=== PATIENT | female | born 1950 | race Caucasian/White ===

== ENCOUNTER → 2021-06-03 13:15 | Outpatient (CLI) | payer BC, SELFPAY ==
--- NOTE | ~2021-06-03 | XR_ITS ---
XR chest 2V DATE: 06/03/2021 13:47 INDICATION: Shortness of breath TECHNIQUE: 2 views COMPARISON: None FINDINGS: Normal heart size. No hilar or mediastinal enlargement. There is aortic arch and descending thoracic aortic calcification. No hilar or mediastinal enlargement. Moderate bilateral hyperinflation. No pulmonary infiltrate or consolidation, pleural effusion or pulm onary vascular congestion or pneumothorax. Mild anterior wedge compression fracture deformity of a lower thoracic vertebral body. Diffuse osteop enia. Degenerative spurring of the thoracic spine. IMPRESSION: Moderate hyperinflation; no active cardiopulmonary disease Reviewed, dictated and finalized at location B.
== END ==
PROVIDERS: PCP Physician Assistant; Visit Provider Physician Assistant
DX: R06.02 Shortness of breath (principal); R91.8 Other nonspecific abnormal finding of lung field
CPT/HCPCS: 71046

== ENCOUNTER 2021-09-10 09:35 | Emergency (ER) | payer BC, SELFPAY ==
--- NOTE | ~2021-09-10 | CT_ITS ---
EXAMINATION: CT lumbar spine wo con DATE: 09/10/2021 12:23 INDICATION: Right-sided sciatica. Lumbar pain. TECHNIQUE: Computed tomography (CT) of the lumbar spine was performed without intravenous contrast. A utomated exposure control and iterative reconstruction technique were employed. The dose-length produ ct was 706.31 mGy-cm. COMPARISON: None FINDINGS: There is a small sliding hiatal hernia. There is 8 degrees dextrocurvature of lumbar spine. Vertebral body heights are normal. There is a benign bone island in L3 vertebral body. There is ingrid rely decreased disc height at L5-S1. There is Baastrup disease at L1-L2. The following disc levels ar e specifically discussed: L1-L2: The disc does not extend beyond the endplate margin. There is mild bilateral facet joint osteo arthritis. There is no neural foraminal stenosis. There is no central canal stenosis. L2-L3: The disc is bulging. There is severe bilateral facet joint osteoarthritis. There is mild bilat eral neural foraminal stenosis. There is no central canal stenosis. L3-L4: The disc is bulging. There is severe bilateral facet joint osteoarthritis. There is mild bilat eral neural foraminal stenosis. There is mild central canal stenosis. L4-L5: The disc does not extend beyond the endplate margin. There is severe bilateral facet joint ost eoarthritis. There is no neural foraminal stenosis. There is no central canal stenosis. L5-S1: The disc is bulging. There is severe bilateral facet joint osteoarthritis. There is mild bilat eral neural foraminal stenosis. There is mild central canal stenosis. IMPRESSION: 1. Severe lumbar spondylosis. Reviewed, dictated and finalized at location A. GRINDER
[2021-09-10 10:12] VITALS: BP 187/93; PULSE 79; RESP 20; TEMP 36.4; O2SAT 97
--- NOTE | 2021-09-10 11:28 | ED.BACK ---
HPI - Back Pain/Injury General Chief Complaint: Extremity Problem,Nontraumatic Stated Complaint: severe butt and low back pain Time Seen by Provider: 09/10/21 11:44 Source: patient Mode of arrival: ambulatory Limitations: no limitations History of Present Illness HPI Narrative: 71-year-old woman with a history of left L5-S1 radiculopathy that causes her LLE pain and intermittent numbness of her left foot comes in today complaining of right lower back pain that started 3 or 4 days ago. She had no falls or injuries. She states that the pain does not radiate down her leg and she has no leg weakness. She denies incontinence, perineal numbness. MD elicited complaint: back pain Pertinent past history: prior back pain Onset (ago): day(s) (3-4) Timing: constant Severity: severe Similar Symptoms Previously: No Quality: sharp and aching Location: lumbar spine and right lower back Radiation: none Exacerbating factors: movement Relieving factors: none Associated symptoms: difficulty walking ( due to pain) Related Data Home Medications Medication Instructions Recorded Confirmed vit C 250 mg-vit E 90 mg-zinc 40 1 tablet PO BID 09/03/20 09/10/21 mg-copper 1 [id number] capsule esomeprazole magnesium 20 mg 20 mg PO DAILY 01/14/21 09/10/21 capsule,delayed release atorvastatin 20 mg PO DAILY 09/10/21 09/10/21 indapamide 2.5 mg PO DAILY 09/10/21 09/10/21 lisinopril 40 mg PO DAILY 09/10/21 09/10/21 metoprolol succinate 25 mg PO DAILY 09/10/21 09/10/21 naproxen 500 mg PO DIRECTED PRN 09/10/21 09/10/21 Allergies Allergy/AdvReac Type Severity Reaction Status Date / Time No Known Allergies Allergy Verified 05/27/21 09:33 Review of Systems Review of Systems: All systems reviewed & are unremarkable except as noted in HPI and below Constitutional: Constitutional: Denies chills and Denies fever(s) ENT: Denies nasal congestion and Denies sore throat Cardiovascular: Cardiovascular: Denies chest pain and Denies radiating jaw, neck or arm pain Respiratory: Respiratory: Denies cough and Denies dyspnea Gastrointestinal: Gastrointestinal: Denies abdominal pain, Denies nausea and Denies vomiting Genitourinary: Genitourinary: Denies hematuria, Denies nocturia and Denies dysuria Musculoskeletal: Musculoskeletal: Reports as per HPI, Denies arthralgias and Denies joint swelling Integumentary/Breasts: Skin/Breast: Denies pruritus, Denies erythema and Denies rash Neurologic: Denies vertigo, Denies dizziness, Denies syncope, Denies focal weakness and Denies numbness Hematologic/Lymphatic: Hematologic/Lymphatic: Denies easy bleeding and Denies easy bruising Allergic/Immunologic: Allergic/Immunologic: Denies lip swelling and Denies throat swelling PMFSH Past Medical History Medical History Other reconstructive surgery as the cause of abnormal reaction of the patient, or of later complication, without mention of misadventure at the time of the procedure Surgical History Surgical History H/O wrist surgery History of tonsillectomy Hx of knee surgery Family History Family History Mother Diabetes mellitus Social History Social History Smoking status: Former smoker Second hand tobacco smoke exposure: No Smoking end date: 10/30/00 Alcohol intake: never Substance use: never Substance use type: does not use Gender identity (if verbalized by the patient): Female Spiritual care concerns: No Agree to blood products: Yes Exam Const: General: healthy appearing and alert Orientation/consciousness: patient oriented x3 Other: moderate acute distress. Eyes: Conjunctivae: conjunctivae normal Pupils: Equal, round and reactive pupils present EOM: EOMs intact bilaterally Resp: Effort &
[2021-09-10 11:51] LABS: Add Urine Microscopic? NO; Appearance Urine Clear (Clear); Bilirubin Urine Negative (Negative); Blood Urine Negative (Negative); Color Urine Light Yellow (Yellow); Glucose Urine UA Negative (Negative); Ketones Urine Negative (Negative); Leukocyte Esterase Ur Negative (Negative); Nitrate Urine Negative (Negative); Protein Urine Negative (Negative); Specific Grav Ur 1.025 (1.010-1.020); pH Urine 6.5 (5.0-8.0)
[2021-09-10] MEDS: HYDROcodone/acetaminophen (*CRX) 5-325 MG TABLET 1 TAB PO (12:42)
--- NOTE | 2021-09-10 12:49 | PC.NURSE ---
PT TALKING WITH FAMILY IN ROOM, ABLE TO CROSS RIGHT LEG OVER LEFT LEG WITH FACIAL GRIMACE OR COMPLAINT OF PAIN
[2021-09-10 13:36] VITALS: BP 190/90; PULSE 74; RESP 18; TEMP 37.1; O2SAT 98
== END 2021-09-10 13:48 | disposition home or self-care (01) ==
PROVIDERS: Emergency Provider Emergency Medicine; PCP Physician Assistant
DX: M54.31 Sciatica, right side (principal); Z87.891 Personal history of nicotine dependence
CPT/HCPCS: 72131; 81003; 99283; 99284; A9270

== ENCOUNTER 2021-09-30 10:39 | Outpatient (RCR) | payer BC, SELFPAY ==
--- NOTE | 2021-09-30 13:31 | PTOPEVAL ---
Thank you for referring Karol Geller to [facility].? The patient is scheduled to be seen for therapy? ____x/week for ___ weeks. Please review, sign, date and return this plan of care SEVERO. I agree with and certify that the following plan of care is medically necessary. Referring Physician Date Admitting Provider: Attending Provider: Franko Hernández DO Referring Provider: *PT Outpatient Evaluation Start: 09/30/21 11:05 Freq: Status: Active Protocol: Document 09/30/21 11:05 [facility] (Rec: 09/30/21 12:01 [facility] [id number]) Therapy Assessment Status Assessment Status Assessment Status Evaluation Outpatient Past Medical History Cardiovascular History Hx Hypercholesterolemia Yes Hx Hypertension Yes Respiratory History Hx Bronchitis Yes Gastrointestinal History Hx Gastroesophageal Reflux Disease Yes Musculoskeletal History Hx Back Pain Yes Hx Other Musculoskeletal Disorders Yes: HERNIATED DISK HEENT History Hx Tonsillectomy Yes Reproductive History Hx Post Menopausal Yes Other History Hx Cancer Yes: NOSE SKIN CANCER Evaluation Information Problem Diagnosis lumbago, sciatica Onset 08/22/21 Additional Evaluation Detail oswestry = 50% functionally declined Subjective Information patient reports she has been Query Text:As Reported By Patient/ having bilateral sciatica Family symptoms since 08/22/21. she reports she had sciatica on one side of her body about 8 years ago. she reports she ended up in the ER this time due to severe bilateral pain. she reports she has seen a surgeon who wanted to operate on her, but she does not want to consider this at this time due to the risks. she reports she has pain worse down the L side in the buttock and down the back of the LE into the thigh. she reports on the R side it is acorss her butt and down to the lateral lower leg /ankle. she reports she has increased pain with walking. she reports she also has pain with bending and lifting. she reports she is numb down the buttock, on
== END 2021-10-06 10:25 | disposition home or self-care (01) ==
LOC: CHSPT 10:39
PROVIDERS: PCP Family Medicine; Visit Provider Family Medicine
DX: M54.50 Low back pain, unspecified (principal); G89.29 Other chronic pain
CPT/HCPCS: 97014; 97110; 97161; G0283

== ENCOUNTER 2021-10-07 13:02 | Outpatient (CLI) | payer BC, SELFPAY | END 2021-10-07 13:03 | disposition home or self-care (01) | LOC: CHSLAB 13:05 | PROVIDERS: PCP Family Medicine | DX: Z79.891 Long term (current) use of opiate analgesic (principal); Z53.8 Procedure and treatment not carried out for other reasons | CPT/HCPCS: 99199 ==

== ENCOUNTER 2021-11-01 05:54 | Emergency (ER) | payer BC, SELFPAY ==
--- NOTE | ~2021-11-01 | XR_ITS ---
XR hip LT min 2V DATE: 11/01/2021 06:58 INDICATION: Left hip pain. No injury. TECHNIQUE: AP and lateral views of left hip COMPARISON: None FINDINGS: Brief and/or prior fracture at the junction of the left superior pubic ramus and acetabulum is suggested. Possible recent or more likely old fracture deformities of the left and right inferior pubic rami. Consider pelvic CT examination for more definitive evaluation. Otherwise no fracture or dislocation, avascular necrosis or bone destruction of the left hip. The pubic symphysis and included portions of the sacroiliac joints appear intact. IMPRESSION: Bilateral pelvic fractures of undetermined age are suggested; consider CT pelvis examinat ion Reviewed, dictated and finalized at location A. D WASTE MANAGER IMPRESSION: Bilateral pelvic fractures of undetermined age are suggested; consi blake CT pelvis examination
[2021-11-01 06:10] VITALS: BP 172/93; PULSE 89; RESP 16; TEMP 36.6; O2SAT 98
--- NOTE | 2021-11-01 06:35 | ED.EXTPRO ---
HPI - Extremity Problem General Chief complaint: Extremity Injury, Lower Stated complaint: left Hip Pain Source: patient, EMS and RN notes reviewed Mode of arrival: EMS Limitations: no limitations History of Present Illness HPI Narrative: Patient states she has pain in her groin on the left side to the point where it is difficulty with ambulation. It only hurts when she is ambulating. She has a history of back problems and sciatica. She had multiple CTs. She has seen a pain specialist and recently had her dose of Vicodin decreased from t.i.d. to b.i.d.. Complaint: extremity pain Onset (ago): day(s) (10) Pain Consistency: intermittent Location: left and lower extremity (hip) Severity scale (1-10): 10 Quality: burning and sharp Radiation: proximal Relieving factors: nothing Exacerbating factors: weight bearing and walking Associated symptoms: denies other symptoms Related Data Home Medications Medication Instructions Recorded Confirmed vit C 250 mg-vit E 90 mg-zinc 40 1 tablet PO BID 09/03/20 09/10/21 mg-copper 1 [id number] capsule atorvastatin 20 mg PO DAILY 09/10/21 09/10/21 indapamide 2.5 mg PO DAILY 09/10/21 09/10/21 lisinopril 40 mg PO DAILY 09/10/21 09/10/21 metoprolol succinate 25 mg PO DAILY 09/10/21 09/10/21 Allergies Allergy/AdvReac Type Severity Reaction Status Date / Time No Known Allergies Allergy Verified 09/20/21 10:47 Review of Systems Review of Systems: All systems reviewed & are unremarkable except as noted in HPI and below PMFSH Past Medical History Medical History Other reconstructive surgery as the cause of abnormal reaction of the patient, or of later complication, without mention of misadventure at the time of the procedure Surgical History Surgical History H/O wrist surgery History of tonsillectomy Hx of knee surgery Family History Family History Mother Diabetes mellitus Social History Social History Smoking status: Former smoker Second hand tobacco smoke exposure: No Smoking end date: 10/30/00 Alcohol intake: never Substance use: never Substance use type: does not use Gender identity (if verbalized by the patient): Female Spiritual care concerns: No Agree to blood products: Yes Exam Const: General: healthy appearing, no acute distress and alert Nutritional Appearance: well nourished Orientation/consciousness: patient oriented x3 HENMT: Head: normal to inspection Ears: external ears normal Eyes: Conjunctivae: conjunctivae normal Pupils: Equal, round and reactive pupils present EOM: EOMs intact bilaterally Neck: Neck: normal visual inspection Resp: Effort & Inspection: normal respiratory effort Auscultation: clear to auscultation bilaterally Cardio: Rate: regular rate Rhythm: regular rhythm GI: GI Palp: Yes Soft to palpation and No Tenderness to palpation present (GI) Auscultation: normal bowel sounds Neuro: General: patient oriented x3, moves all extremities, no meningeal signs, no focal motor deficits and CN's II-XI intact bilaterally Speech: normal speech Gait exam (Neuro): Normal gait present Extrem: General: normal exam except as noted and no clubbing, cyanosis or edema Left lower extremity: hip/thigh Details: tenderness Location: of the hip Location: laterally and anteriorly and abnormal ROM Details: pain with active ROM Details: with flexion, with internal rotation and with external rotation Psych: Appearance: grossly normal and well kempt Mental Status: mental status grossly normal Affect: normal affect Attitude: cooperative Thought content: Yes Normal thought content present Course Vital Signs Vital signs: Vital Signs Temperature 36.6 C 11/01/21 06:10 Pulse Rate 89 11/01/21 06:10 Respiratory Rate
[2021-11-01] MEDS: KETOROLAC (*BKC) 60 MG/2 ML VIAL IM (06:47)
[2021-11-01] MEDS: ORPHENADRINE CITRATE 30 MG/ML 2 ML VIAL 60 MG IM (06:48)
--- NOTE | 2021-11-01 06:48 | PC.NURSE ---
Patient able to pivot to commode without assistance.
--- NOTE | 2021-11-01 08:37 | ED.LOWEXIN ---
HPI - Extremity Injury (Lower) General Chief Complaint: Extremity Injury, Lower Stated Complaint: left Hip Pain Time Seen by Provider: 11/01/21 05:56 Source: patient, EMS and RN notes reviewed Mode of arrival: EMS Limitations: no limitations History of Present Illness HPI Narrative: left buttock to lower limb pain complaint: other (no trauma) Onset (ago): day(s) (2) Severity: moderate Severity scale (1-10): 7 Relieving factors: nothing Exacerbating factors: weight bearing and movement Related Data Home Medications Medication Instructions Recorded Confirmed vit C 250 mg-vit E 90 mg-zinc 40 1 tablet PO BID 09/03/20 11/01/21 mg-copper 1 [id number]-[id number] capsule cyclobenzaprine 5 mg PO BID 11/01/21 11/01/21 naproxen 500 mg PO BID 11/01/21 11/01/21 Allergies Allergy/AdvReac Type Severity Reaction Status Date / Time No Known Allergies Allergy Verified 09/20/21 10:47 Review of Systems Review of Systems: All systems reviewed & are unremarkable except as noted in HPI and below Musculoskeletal: Musculoskeletal: Reports back pain and Reports arthralgias PMFSH Past Medical History Medical History Other reconstructive surgery as the cause of abnormal reaction of the patient, or of later complication, without mention of misadventure at the time of the procedure Sciatica Surgical History Surgical History H/O wrist surgery History of tonsillectomy Hx of knee surgery Family History Family History Mother Diabetes mellitus Social History Social History Smoking status: Former smoker Second hand tobacco smoke exposure: No Smoking end date: 10/30/00 Alcohol intake: never Substance use: never Substance use type: does not use Gender identity (if verbalized by the patient): Female Spiritual care concerns: No Agree to blood products: Yes Exam Const: General: no acute distress Nutritional Appearance: well nourished Orientation/consciousness: patient oriented x3 Limitations: no limitations HENMT: Head: normal to inspection Ears: external ears normal and TM's normal bilaterally General nose exam: Normal external nose present Face and sinus: normal facial exam Mouth: Yes lip normal and Yes moist mucous membranes Eyes: Conjunctivae: conjunctivae normal Pupils: Equal, round and reactive pupils present EOM: EOMs intact bilaterally Neck: Neck: normal visual inspection and no lymphadenopathy Chest: Chest palpation & inspection: normal inspection of the chest Resp: Effort & Inspection: normal respiratory effort Auscultation: clear to auscultation bilaterally Cardio: Rate: regular rate Rhythm: regular rhythm GI: GI Palp: Yes Soft to palpation and No Tenderness to palpation present (GI) Auscultation: normal bowel sounds : General: Yes bladder normal to palpation and Yes no CVA tenderness Back/Spine/Pelvis: Back: no CVA tenderness Skin: General skin exam: normal color Rashes: no rashes Neuro: General: patient oriented x3, moves all extremities, no meningeal signs, no focal motor deficits and CN's II-XI intact bilaterally Extrem: General: normal to inspection Psych: Appearance: grossly normal and well kempt Mental Status: mental status grossly normal Affect: normal affect Thought content: Yes Normal thought content present Course Course Emergency Course: Pt was stable and less pain-ful in the ED> Reevaluation(s) Reevaluation #1: VSS. Pt was significantly improved in the ED. Date: 11/01/21 Time: 06:55 Vital Signs Vital signs: Vital Signs Temperature 36.6 C 11/01/21 06:10 Pulse Rate 89 11/01/21 06:10 Respiratory Rate 16 11/01/21 06:10 Blood Pressure 172/93 H 11/01/21 06:10 Pulse Oximetry 98 11/01/21 06:10 Temperature 36.4 C L 01
[2021-11-01 09:11] VITALS: BP 165/90; PULSE 83; RESP 20; TEMP 36.4; O2SAT 96
== END 2021-11-01 09:16 | disposition home or self-care (01) ==
PROVIDERS: Emergency Provider Emergency Medicine; PCP Family Medicine
DX: M54.32 Sciatica, left side (principal)
CPT/HCPCS: 73502; 96372; 97161; 99283; 99284; J1885; J2360

== ENCOUNTER 2022-02-15 10:19 | Outpatient (CLI) | payer BC, SELFPAY ==
--- NOTE | ~2022-02-15 | MR_ITS ---
EXAMINATION: MR lumbar spine wo con DATE: 02/15/2022 11:05 INDICATION: Spinal stenosis without neurogenic claudication. Low back pain radiating down the bilater al legs. TECHNIQUE: Magnetic resonance imaging (MRI) of the lumbar spine was performed without intravenous con trast. Sequences included sagittal T2-weighted FSE, sagittal T2-weighted FS FSE, sagittal T1-weighted FSE, and axial T2-weighted FSE. COMPARISON: Lumbar CT dated 09/10/2021 FINDINGS: 18 degree lumbar dextroscoliosis between T12 and L4. Sagittal alignment is normal. Chronic T9 krista marilyn fracture with one third anterior vertebral body height loss. Remaining vertebral body heights ar e normal with normal marrow signal throughout. Moderate disc height loss at L5-S1 with fibrofatty deg enerative endplate changes at both sides of the disc space. Mild disc height loss at T8-T9, T9-T10, L 3-L4 and L4-L5. For annular fissures and small disc extrusions at the right subarticular zone at T9-T 10 and centrally with mild central canal stenosis at T10-T11 and T11-T12. The discs, central canal an d neural foramina of the more caudal lumbar spine will be further detailed below. The conus medullari s terminates at L1. There is normal signal in the caudal spinal cord. Paravertebral soft tissues are unremarkable. The following disc levels are specifically discussed: T12-L1: Disc is bulging. There is mild bilateral facet joint osteoarthritis. There is no neural nathan inal stenosis. There is mild central canal stenosis. L1-L2: Small central disc protrusion. There is mild bilateral facet joint osteoarthritis. There is no neural foraminal stenosis. There is mild central canal stenosis. L2-L3: Disc is bulging. There is severe bilateral facet joint osteoarthritis. There is mild bilateral neural foraminal stenosis. There is mild central canal stenosis. L3-L4: Disc is bulging. There is severe bilateral facet joint osteoarthritis. There is mild bilateral neural foraminal stenosis. There is mild central canal stenosis. L4-L5: The disc does not extend beyond the endplate margin. There is severe bilateral facet joint ost eoarthritis. There is mild right neural foraminal stenosis. There is mild central canal stenosis. L5-S1: Disc is bulging with annular fissure. Small amount of heterotopic ossification along the disc margin at the left foraminal zone. There is moderate right and severe left facet joint osteoarthritis . There is mild bilateral neural foraminal stenosis. There is mild central canal stenosis. IMPRESSION: 1. Severe lumbar spondylosis. Reviewed, dictated and finalized at location A.
== END 2022-02-15 10:20 | disposition home or self-care (01) ==
LOC: CHSIMG 10:20
PROVIDERS: PCP Family Medicine; Visit Provider Nurse Practitioner Adult Health
DX: M48.061 Spinal stenosis, lumbar region without neurogenic claudication (principal)
CPT/HCPCS: 72148

== ENCOUNTER 2022-07-07 09:21 | Emergency (ER) | payer BC, SELFPAY ==
--- NOTE | ~2022-07-07 | XR_ITS ---
EXAMINATION: XR elbow RT 2V INDICATION: Right elbow pain, initial encounter TECHNIQUE: Two views of the right elbow are obtained. COMPARISON: None available FINDINGS: An elbow joint effusion is present. There appears to be a nondisplaced intra-articular frac ture of the radial head. Moderate osteoarthritis is noted. Bone alignment is normal. IMPRESSION: 1. Probable nondisplaced radial head fracture with small joint effusion. Reviewed, dictated and finalized at location B.
--- NOTE | ~2022-07-07 | XR_ITS ---
EXAMINATION: XR facial bones min 3V INDICATION: Facial pain TECHNIQUE: Four views of the facial bones are obtained. COMPARISON: None available FINDINGS: There is left facial soft tissue swelling. No definite facial bone fracture is identified. The frontal sinuses are not pneumatized. IMPRESSION: 1. No definite facial fracture identified however sensitivity of radiographs is low. If there is high clinical suspicion for facial fracture, further evaluation with CT of the facial bones is recommende d. Reviewed, dictated and finalized at location B. IMPRESSION: 1. No definite facial fracture identified however sensitivity of radiographs is low. If there is high clinical suspicion for facial fracture, further evaluati on with CT of the facial bones is recommended.
--- NOTE | ~2022-07-07 | XR_ITS ---
EXAMINATION: XR shoulder RT min 2V INDICATION: Right shoulder pain, initial encounter TECHNIQUE: Four views of the right shoulder are submitted. COMPARISON: None FINDINGS: There is an acute, traumatic, closed, comminuted fracture of the proximal humerus. There is an oblique fracture plane containing the greater tuberosity and approximately two thirds of the ramon ral head. There is a separate fracture fragment containing the lesser tuberosity. A transverse fractu re plane is seen through the proximal neck of the humerus. The lesser tuberosity and humeral shaft fr agments appear to be rotated and inferomedially displaced. No additional fracture is identified. Ther e is soft tissue swelling of the proximal arm. IMPRESSION: 1. Comminuted displaced proximal right humerus fracture. Reviewed, dictated and finalized at location B.
[2022-07-07 09:46] VITALS: BP 153/73; PULSE 92; RESP 20; TEMP 36.1; O2SAT 98
[2022-07-07] MEDS: KETOROLAC 30 MG/ML VIAL (*BKC) IM (10:16)
--- NOTE | 2022-07-07 10:43 | ED.FALL ---
HPI - Fall General Chief Complaint: Fall Stated Complaint: FELL HIT FACE AND ARM PAIN Time Seen by Provider: 07/07/22 09:43 Source: patient and family Mode of arrival: ambulatory Limitations: no limitations History of Present Illness HPI Narrative: this is a 71-year-old female that presents after she tripped outdoors on a pavement with a break that was protruding and fell on her right shoulder causing pain swelling with decreased range of motion, the patient does wear glasses and did fall and has some bruising and hematoma to the left periorbital region. Has good range of motion in ocular muscles there is no conjunctival hematoma, as a brisk pulse on the right arm, with currently no numbness or tingling. The patient states that her pain levels about a 1/10 if she keeps her arm and shoulder still with some movement. Otherwise was complaining of some right hip pain as well. There is no chest pain no shortness of breath no belly pain no loss of consciousness, no headaches no nausea or vomiting. complaint: fall Onset (ago): day(s) Fall from: standing Fall witnessed: yes, by family Place fall occurred: home Loss of consciousness: none Prolonged down time: no Symptoms prior to fall: none Context: tripped/slipped Location of injury: face Location of injury - extremities: Right: shoulder ( swelling and tenderness with decreased range of motion) and elbow Related Data Home Medications Medication Instructions Recorded Confirmed vit C 250 mg-vit E 90 mg-zinc 40 1 tablet PO BID 09/03/20 11/01/21 mg-copper 1 [id number]-fvvjaj-fvyreb capsule (PreserVision AREDS-2) gabapentin 600 mg tablet 600 mg PO TID 04/06/22 metoprolol succinate 25 mg 25 mg PO DAILY 06/24/22 tablet,extended release 24 hr esomeprazole magnesium 20 mg 20 mg PO DAILY 07/07/22 07/07/22 capsule,delayed release naproxen 500 mg tablet 500 mg PO BID PRN Pain 07/07/22 07/07/22 Allergies Allergy/AdvReac Type Severity Reaction Status Date / Time No Known Allergies Allergy Verified 07/07/22 09:59 Review of Systems Review of Systems: All systems reviewed & are unremarkable except as noted in HPI and below PMFSH Past Medical History Medical History Other reconstructive surgery as the cause of abnormal reaction of the patient, or of later complication, without mention of misadventure at the time of the procedure Sciatica Surgical History Surgical History H/O wrist surgery History of tonsillectomy Hx of knee surgery Family History Family History Mother Diabetes mellitus Social History Social History Smoking status: Former smoker Second hand tobacco smoke exposure: No Smoking end date: 10/30/00 Alcohol intake: never Substance use: never Substance use type: does not use Gender identity (if verbalized by the patient): Female Spiritual care concerns: No Agree to blood products: Yes Exam Const: General: healthy appearing and no acute distress Limitations: no limitations HENMT: Head: normal to inspection General nose exam: Normal external nose present Mouth: Yes Normal oral and palatal mucosa present Other: Periorbital hematoma otherwise no step-off has blurry vision but is secondary to she does not have a 2nd pair of glasses. Eyes: Conjunctivae: conjunctivae normal EOM: EOMs intact bilaterally Direct Ophthalmoscopy: no photophobia Neck: Neck: normal visual inspection, no lymphadenopathy and no meningeal signs Chest: Chest palpation & inspection: normal inspection of the chest Resp: Effort & Inspection: normal respiratory effort Auscultation: clear to auscultation bilaterally Cardio: Rate: regular rate Rhythm: regular rhythm GI: Auscultation: normal bowel sounds Back/Spine/Pelvis: Back: no CVA tend
[2022-07-07 12:25] VITALS: BP 180/93; PULSE 84; RESP 18; TEMP 36.4; O2SAT 96
--- NOTE | 2022-07-07 13:36 | PC.NURSE ---
On 07/07/22, the student, REGGIE OLEA[ ], provided care and completed [facility] documentation on this patient. I have reviewed the student's documentation and agree with the findings.
== END 2022-07-07 12:25 | disposition short-term general hospital (02) ==
PROVIDERS: Emergency Provider Emergency Medicine; PCP Family Medicine
DX: S42.91XA Fracture of right shoulder girdle, part unspecified, initial encounter for closed fracture (principal); W19.XXXA Unspecified fall, initial encounter; Z87.891 Personal history of nicotine dependence
CPT/HCPCS: 70150; 73030; 73070; 96372; 99285; J1885

== ENCOUNTER 2024-01-24 10:37 | Outpatient (CLI) | payer BC, SELFPAY ==
--- NOTE | ~2024-01-24 | XR_ITS ---
EXAM: XR knee RT 3V DATE: 01/24/2024 11:01 HISTORY: rt knee pain when walking X 5 months, hx of fx w/ surgery . COMPARISON: None available. FINDINGS: Decreased mineralization. No fracture or dislocation. No lytic or blastic lesion. Severe m edial joint space narrowing. Tricompartmental osteophytosis, severe in the patellofemoral compartment . Moderate volume joint fluid. Scattered atherosclerotic calcifications No erosion or periosteal randall ge. Soft tissues within normal limits. IMPRESSION: Tricompartmental right knee osteoarthritis, severe in the patellofemoral and medial black rtments. Reviewed, dictated and finalized at location K. IMPRESSION: Tricompartmental right knee osteoarthritis, severe in the patellofe moral and medial compartments.
[2024-01-24 10:48] LABS: Basophils Absolute Auto 0.05 K/mm3 (0.00-0.10); Basophils Percent Auto 0.5 % (0.0-1.0); Eosinophils Percent Auto 3.7 % (1.0-6.0); Hematocrit 42.7 % (35.0-42.0); Hemoglobin 13.3 g/dL (11.7-13.8); Immature Granulocyte Absolute 0.04 K/mm3 (0.00-0.00); Immature Granulocyte Percent A 0.4 % (0.0-0.0); Lymphocytes Absolute Auto 1.89 K/mm3 (1.10-4.50); Lymphocytes Percent Auto 17.6 % (18.0-42.0); Mean Corpuscular HGB Conc 31.1 g/dL (32-36); Mean Corpuscular Hemoglobin 28.2 pg (27.0-31.0); Mean Corpuscular Volume 90.5 fL (78.0-102.0); Mean Platelet Volume 9.3 fl (9.2-11.8); Monocytes Absolute Auto 0.72 K/mm3 (0.10-0.90); Monocytes Percent Auto 6.7 % (2.0-11.0); Neutrophils Absolute Auto 7.65 K/mm3 (1.70-7.20); Neutrophils Percent Auto 71.1 % (50.0-70.0); Platelet Count Result 324 K/mm3 (150-420); Red Blood Count 4.72 M/mm3 (4.20-5.40); Red Cell Distribution Width 12.5 % (11.6-14.4); White Blood Count 10.8 K/mm3 (4.8-10.8)
[2024-01-24 11:20] LABS: Alanine Aminotransferase 16 U/L (14-59); Albumin Level 3.7 g/dL (3.4-5.0); Alkaline Phosphatase 121 U/L (46-116); Anion Gap 12 mmol/L (4-12); Aspartate Amino Transferase 11 U/L (15-37); Bilirubin,Total 1.1 mg/dL (0.00-1.00); Blood Urea Nitrogen 24 mg/dL (7-18); Calcium 9.2 mg/dL (8.5-10.1); Carbon Dioxide 29 mmol/L (21-32); Chloride 103 mmol/L (98-108); Cholesterol 159 mg/dL (0-200); Estimated Glomerular Filt Rate 38; Glucose 113 mg/dL (70-99); HDL Direct 43 mg/dL (40-60); LDL Cholesterol Calculated 92 mg/dL (<130); Osmolality Calculated 303 mOsm/kg (285-295); Potassium 3.6 mmol/L (3.5-5.1); Sodium 144 mmol/L (136-145); Total Protein 7.4 g/dL (6.4-8.2); Triglycerides 120 mg/dL (0-150)
== END 2024-01-24 10:38 | disposition home or self-care (01) ==
LOC: CHSLAB 10:39
PROVIDERS: PCP Family Medicine; Visit Provider Family Medicine
DX: Z00.00 Encounter for general adult medical examination without abnormal findings (principal); M25.561 Pain in right knee; M17.11 Unilateral primary osteoarthritis, right knee
CPT/HCPCS: 36415; 73562; 80053; 80061; 85025

== ENCOUNTER 2024-10-17 09:46 | Outpatient (CLI) | payer MEDICAID, SELFPAY ==
--- NOTE | ~2024-10-17 | XR_ITS ---
Lumbosacral Spine: AP and lateral views Clinical History: Pain Findings: There is dextroscoliosis. No acute fracture or subluxation evident otherwise. There is adva nced degenerative disc narrowing at L5-S1, with mild degenerative disc change at the remaining levels . There is severe facet arthropathy throughout the lumbar spine. There is extensive atherosclerotic c alcification of the aorta Spaces are preserved. The sacroiliac joints are normally outlined. Impression: Moderate to advanced degenerative spondylosis overall, with severe extensive facet joint arthropathy. Dextroscoliosis. Reviewed, dictated and finalized at location M. [employer] Impression: Moderate to advanced degenerative spondylosis overall, with severe extensive fa cet joint arthropathy. Dextroscoliosis.
== END 2024-10-17 09:47 | disposition home or self-care (01) ==
PROVIDERS: PCP Family Medicine; Visit Provider Family Medicine
DX: M47.897 Other spondylosis, lumbosacral region (principal); M47.896 Other spondylosis, lumbar region; M41.87 Other forms of scoliosis, lumbosacral region; G89.29 Other chronic pain
CPT/HCPCS: 72100